=== PATIENT | male | born 1975 | race Caucasian/White ===

== ENCOUNTER 2022-01-23 20:28 | Emergency (ER) | payer BC ==
[2022-01-23 21:46] LABS: HEMOGLOBIN 16.5 gm/dl (14.0-17.5); RED BLOOD COUNT 5.29 M/UL (4.20-5.50); WHITE BLOOD COUNT 16.4 K/UL (4.5-11.0)
[2022-01-23 22:10] LABS: BUN/CREATININE RATIO 18 (0-10)
[2022-01-24] MEDS ORDERED: ONDANSETRON ODT4 MG SL (01:06)
[2022-01-24] MEDS ORDERED: K-TAB ER20 MEQ PO (01:06)
== END 2022-01-24 01:17 | disposition home or self-care (01) ==
LOC: ER1 20:28
PROVIDERS: Physician Assistant
DX: T67.5XXA Heat exhaustion, unspecified, initial encounter (principal); E87.6 Hypokalemia; R10.11 Right upper quadrant pain; R10.811 Right upper quadrant abdominal tenderness; X30.XXXA Exposure to excessive natural heat, initial encounter
CPT/HCPCS: 71045; 80053; 82550; 82553; 83690; 83735; 84484; 85025; 93005; 96361; 96374; 96375; 96376; 99284; J1885; J2405; Q9967